=== PATIENT | female | born 1955 | race Caucasian/White ===

== ENCOUNTER 2018-02-02 12:04 | Emergency (ER) | payer BC, OTHER ==
[~2018-02-02] VITALS: Ht 152.4 cm; Wt 68.0 kg
--- NOTE | 2018-02-02 12:10 | NUR ---
Dr Biswas at the bedside for MSE.
[2018-02-02 12:24] LABS: *BILIRUBIN,URIN NEGATIVE (NEGATIVE); *BLOOD, URINE NEGATIVE (NEGATIVE); *CLARITY,URINE CLEAR (CLEAR); *COLOR,URINE YELLOW (YELLOW); *KETONES,URINE NEGATIVE (NEGATIVE); *PROTEIN,URINE NEGATIVE (NEGATIVE); *UROBILINOGEN,URINE 0.2 E.U./dl (NORMAL); LEUKOCYTE ESTERASE ,URINE NEGATIVE (NEGATIVE); NITRITE, URINE NEGATIVE (NEGATIVE); UGLUCOSE NEGATIVE (NEGATIVE)
[2018-02-02 12:25] LABS: *URINE HCG, QUAL NEGATIVE (NEGATIVE)
[2018-02-02 12:26] LABS: BACTERIA,URINE FEW /HPF (NONE SEEN); RBC,URINE NONE SEEN /HPF (0-3); SQUAMOUS EPITHELIAL CELL,UR FEW /HPF (NONE SEEN); WBC,URINE 0-3 /HPF (0-3)
--- NOTE | 2018-02-02 13:03 | NUR ---
Pt resting in chair, denies pain and nausea, awaiting Ct result.
[2018-02-02 13:18] VITALS: BP 138/87
--- NOTE | 2018-02-02 13:18 | NUR ---
Patient discharged to home in stable conditon. Written and verbal after care instructions given. Patient verbalizes understanding of instructions.
== END 2018-02-02 13:20 | disposition home or self-care (01) ==
LOC: ER 12:06
DX: K80.80 Other cholelithiasis without obstruction (principal); Z88.0 Allergy status to penicillin; Z88.6 Allergy status to analgesic agent
CPT/HCPCS: 84703; A4663